=== PATIENT | male | born 1950 | race Caucasian/White ===

== ENCOUNTER 2020-03-26 00:21 | Observation (INO) ==
[2020-03-26] MEDS ORDERED: Naloxone 0.4 MG/ML INJ IVP PRN (03:56)
[2020-03-26] MEDS ORDERED: Acetaminophen 325 MG TABLET PO PRN (03:56)
[2020-03-26] MEDS ORDERED: 0.9 % Sodium Chloride 1,000 ML IVC SCH (04:00)
[2020-03-26 04:55] LABS: Basophils % 0.4 %; Hematocrit 28.5 % (37.5-50.1); Hemoglobin 9.4 g/dL (12.9-16.9); Immature Granulocytes % 0.8 % (0-4); Lymphocytes # 0.5 K/mcL (0.6-4.6); Mean Corpuscular Hemoglobin 29.6 pg (28.0-33.3); Mean Corpuscular Volume 89.6 fL (83.0-100.0); Mean Platelet Volume 9.2 fL (9.4-12.4); Monocytes # 0.4 K/mcL (0.0-1.3); Monocytes % 14.1 %; Neutrophils # 1.7 K/mcL (1.6-8.9); Platelet Count 119 K/mcL (140-400); Red Blood Count 3.18 M/mcL (4.19-5.50); Red Cell Distribution Width 15.9 % (11.5-14.5); Segmented Neutrophils % 66.7 %; White Blood Count 2.6 K/mcL (4.3-11.1)
[2020-03-26 04:56] LABS: Activated Partial Thrombo Time 34.9 Seconds (26.0-36.0)
[2020-03-26 05:10] LABS: Albumin 2.4 g/dL (3.5-5.7); Albumin/Globulin Ratio 0.7 (1.1-2.2); Bilirubin,Total 0.7 mg/dL (0.3-1.0); Calcium 7.6 mg/dL (8.6-10.3); Globulin 3.3 g/dL (2.4-3.5); Potassium 3.5 mEq/L (3.5-5.1); Total Protein 5.7 g/dL (6.4-8.9)
[2020-03-26 05:15] LABS: Troponin I 0.09 ng/mL (< 0.04)
[2020-03-26] MEDS ORDERED: Perflutren Lipid Microsphere 1.3 ML in 0.9 % Sodium Chloride 8.7 ML IVP PRN (05:18)
[2020-03-26] MEDS ORDERED: Aspirin 325 MG TABLET PO ONE (05:18)
[2020-03-26 05:25] LABS: Thyroid Stimulating Hormone 2.323 mcIU/mL (0.340-5.600)
[2020-03-26 06:04] LABS: Phosphorous 3.5 mg/dL (2.7-4.5)
[2020-03-26] MEDS: *HR* Heparin 5,000 UNIT/ML VIAL SQ SCH ×2 (06:55→15:07)
[2020-03-26] MEDS: Sodium Bicarbonate 75 MEQ in 0.45 % Sodium Chloride 1,000 ML IVC SCH (09:57)
[2020-03-26] MEDS: amLODIPine 5 MG TABLET PO SCH (15:07)
[2020-03-26] MEDS ORDERED: Gadolinium Contrast Agent (WT Based) IV PRN (15:15)
[2020-03-26] MEDS ORDERED: SODIUM CHLORIDE/NAHCO3/KCL/PEG 4,000 ML SOLN.RECON PO ONE (15:19)
[2020-03-26 16:21] LABS: Protein/Creatinine Ratio,Urine 1.27 mg/mg (0.00-0.20)
[2020-03-26 17:08] LABS: Bacteria,Urine Few per hpf (None-Few); Bilirubin,Urine Negative (Negative); Blood,Urine Small (Negative); Clarity,Urine Clear (Clear); Color,Urine Light-Yellow (Yellow); Glucose,Urine (UA) 50 mg/dL (Normal); Granular Casts,Urine Few per lpf (None Seen); Hyaline Casts,Urine Few per lpf (None Seen); Ketones,Urine Negative (Negative); Leukocyte Esterase,Urine Negative (Negative); Mucus,Urine Few per lpf (None-Few); Nitrite,Urine Negative (Negative); Protein,Urine 70 mg/dL (Neg-Trace); Specific Gravity,Urine 1.017 (1.010-1.025); Urobilinogen,Urine Normal (Normal); WBC,Urine 0-3 per hpf (0-3)
[2020-03-26 17:52] LABS: Immature Reticulocyte % 11.5 % (11.0-38.0); Retculocyte # 0.08 M/mcL (0.05-0.10); Reticulocyte % 2.2 % (1.6-2.8)
[2020-03-26 18:09] LABS: Calcium 8.1 mg/dL (8.6-10.3); Potassium 3.6 mEq/L (3.5-5.1)
[2020-03-26 18:22] LABS: Prostate Specific Antigen 0.22 ng/mL (Less than 4.00)
[2020-03-26 18:34] LABS: Folate 5.8 ng/mL (3.0-16.0)
[2020-03-27 02:39] LABS: Basophils % 0.4 %; Hematocrit 28.3 % (37.5-50.1); Hemoglobin 9.5 g/dL (12.9-16.9); Immature Granulocytes % 0.7 % (0-4); Lymphocytes # 0.5 K/mcL (0.6-4.6); Lymphocytes % 17.9 %; Mean Corpuscular HGB Conc 33.6 g/dL (31.6-35.5); Mean Corpuscular Hemoglobin 30.7 pg (28.0-33.3); Mean Corpuscular Volume 91.6 fL (83.0-100.0); Mean Platelet Volume 9.2 fL (9.4-12.4); Monocytes # 0.3 K/mcL (0.0-1.3); Monocytes % 11.6 %; Neutrophils # 1.9 K/mcL (1.6-8.9); Platelet Count 122 K/mcL (140-400); Red Blood Count 3.09 M/mcL (4.19-5.50); Red Cell Distribution Width 15.9 % (11.5-14.5); Segmented Neutrophils % 69.4 %; White Blood Count 2.7 K/mcL (4.3-11.1)
[2020-03-27 02:56] LABS: Albumin 2.5 g/dL (3.5-5.7); Albumin/Globulin Ratio 0.8 (1.1-2.2); Bilirubin,Total 0.7 mg/dL (0.3-1.0); Calcium 7.8 mg/dL (8.6-10.3); Chol/HDL Ratio 4.2 (0-4.9); Globulin 3.2 g/dL (2.4-3.5); Magnesium 1.9 mg/dL (1.6-2.6); Phosphorous 3.1 mg/dL (2.7-4.5); Potassium 3.4 mEq/L (3.5-5.1); Total Protein 5.7 g/dL (6.4-8.9)
[2020-03-27 03:22] LABS: Hepatitis B Surface Antigen Nonreactive (Nonreactive)
[2020-03-27 03:50] LABS: Hepatitis B Core IgM Nonreactive (Nonreactive); Hepatitis C Virus Antibody Nonreactive (Nonreactive)
[2020-03-27 03:52] LABS: Hepatitis A Antibody IgM Nonreactive (Nonreactive)
[2020-03-27 08:25] LABS: Estimated Average Glucose 114 mg/dl
[2020-03-27] MEDS: amLODIPine 5 MG TABLET PO SCH (09:37)
[2020-03-27] MEDS: Sodium Bicarbonate 75 MEQ in 0.45 % Sodium Chloride 1,000 ML IVC SCH ×2 (10:38→19:23)
[2020-03-27] MEDS ORDERED: *HR* Propofol 200 MG/20 ML VIAL IVP ONE (12:45)
[2020-03-27] MEDS ORDERED: *HR* FentaNYL (PF) 100 MCG/2 ML VIAL ONE (12:45)
[2020-03-27] MEDS ORDERED: Ondansetron 4 MG/2 ML VIAL ONE (13:01)
[2020-03-27] MEDS ORDERED: Lidocaine -MPF 4% 5 ML AMPUL ONE (13:01)
[2020-03-27] MEDS ORDERED: Dexamethasone 4 MG/ML VIAL ONE (13:01)
[2020-03-28 03:06] LABS: Hematocrit 27.6 % (37.5-50.1); Hemoglobin 9.1 g/dL (12.9-16.9); Mean Corpuscular Hemoglobin 30.4 pg (28.0-33.3); Mean Corpuscular Volume 92.3 fL (83.0-100.0); Mean Platelet Volume 9.2 fL (9.4-12.4); Platelet Count 118 K/mcL (140-400); Red Blood Count 2.99 M/mcL (4.19-5.50); Red Cell Distribution Width 16.2 % (11.5-14.5); White Blood Count 2.3 K/mcL (4.3-11.1)
[2020-03-28 03:26] LABS: Calcium 7.6 mg/dL (8.6-10.3); Potassium 3.6 mEq/L (3.5-5.1)
[2020-03-28 06:59] VITALS: BP 125/66
[2020-03-28] MEDS: amLODIPine 5 MG TABLET PO SCH (09:36)
[2020-03-29 21:40] LABS: Kappa Qnt Free Light Chains 109.67 mg/L (3.30-19.40); Lambda Qnt Free Light Chains 116.49 mg/L (5.71-26.30)
[2020-03-30 10:47] LABS: Kappa Qnt Free Light Chains 117.7 mg/L (3.30-19.40); Lambda Qnt Free Light Chains 120.46 mg/L (5.71-26.30)
[2020-03-31 12:21] LABS: Alpha 2 Globulin (PEP) 0.51 g/dL (0.48-1.05); Beta Globulin (PEP) 0.82 g/dL (0.48-1.10)
[2020-04-01 03:04] LABS: Alpha 2 Globulin (PEP) 0.49 g/dL (0.48-1.05); Beta Globulin (PEP) 0.73 g/dL (0.48-1.10)
[2020-04-01 09:00] LABS: Immunoglobulin A 470 mg/dL (68-408); Immunoglobulin G 1640 mg/dL (768-1632); Immunoglobulin M 179 mg/dL (35-263)
[2020-04-01 09:01] LABS: IFE Reflexed IFE Done
[2020-04-01 10:02] LABS: IFE Reflexed IFE Done; Immunoglobulin G 1580 mg/dL (768-1632); Immunoglobulin M 185 mg/dL (35-263)
[2020-04-01 10:03] LABS: Immunoglobulin A 498 mg/dL (68-408)
== END 2020-03-28 12:22 | disposition home or self-care (01) ==
LOC: 3BNU → SUATTDRO 03:12 → 2ANU 19:01
PROVIDERS: ADMIT Student in an Organized Health Care Education/Training Program; ATTEND Internal Medicine
PROC: ENDOEBX (2020-03-27 13:40)

== ENCOUNTER 2020-05-31 01:32 | Observation (INO) ==
[2020-05-31] MEDS ORDERED: *HR* Promethazine 25 MG/ML VIAL IVP PRN (06:32)
[2020-05-31] MEDS ORDERED: Naloxone 0.4 MG/ML INJ IVP PRN ×2 (06:32→07:26)
[2020-05-31 06:54] LABS: Hematocrit 31.1 % (37.5-50.1)
[2020-05-31 06:55] LABS: Eosinophils % 0.4 %; Immature Granulocytes % 0.8 % (0-4); Immature Platelets 1.7 % (1.1-6.1); Lymphocytes # 0.5 K/mcL (0.6-4.6); Lymphocytes % 20.2 %; Mean Corpuscular HGB Conc 32.2 g/dL (31.6-35.5); Mean Corpuscular Volume 96.3 fL (83.0-100.0); Monocytes # 0.3 K/mcL (0.0-1.3); Monocytes % 11.3 %; Neutrophils # 1.7 K/mcL (1.6-8.9); Platelet Count 102 K/mcL (140-400); Red Blood Count 3.23 M/mcL (4.19-5.50); Red Cell Distribution Width 17.3 % (11.5-14.5); Segmented Neutrophils % 67.3 %; White Blood Count 2.5 K/mcL (4.3-11.1)
[2020-05-31 06:55] LABS: VBG Ionized Calcium 1.83 mmol/L (1.15-1.35)
[2020-05-31 07:01] LABS: Prothrombin Time 11.5 Seconds (9.4-12.1)
[2020-05-31] MEDS ORDERED: Acetaminophen 325 MG TABLET PO PRN (07:26)
[2020-05-31 07:34] LABS: Albumin 2.7 g/dL (3.5-5.7); Albumin/Globulin Ratio 0.7 (1.1-2.2); Bilirubin,Total 0.9 mg/dL (0.3-1.0); Calcium 12.3 mg/dL (8.6-10.3); Chol/HDL Ratio 3.3 (0-4.9); Globulin 3.7 g/dL (2.4-3.5); Magnesium 2.2 mg/dL (1.6-2.6); Phosphorous 6.1 mg/dL (2.7-4.5); Potassium 4.5 mEq/L (3.5-5.1); Total Protein 6.4 g/dL (6.4-8.9)
[2020-05-31 07:45] LABS: Thyroid Stimulating Hormone 2.524 mcIU/mL (0.340-5.600)
[2020-05-31 09:18] LABS: Calcium 12.3 mg/dL (8.6-10.3); Potassium 4.3 mEq/L (3.5-5.1)
[2020-05-31 11:22] LABS: Prostate Specific Antigen 0.11 ng/mL (Less than 4.00)
[2020-05-31] MEDS ORDERED: Calcitonin-Salmon, Synthetic 400 UNIT/2 ML VIAL SQ ONE (12:00)
[2020-05-31] MEDS: 0.9 % Sodium Chloride 1,000 ML IVC SCH ×2 (12:02→13:06)
[2020-05-31 12:31] LABS: Hepatitis B Surface Antigen Nonreactive (Nonreactive)
[2020-05-31 13:00] LABS: Hepatitis C Virus Antibody Nonreactive (Nonreactive)
[2020-05-31 13:00] LABS: Bilirubin,Urine Negative (Negative); Blood,Urine Trace (Negative); Calcium Oxalate Crystals,Urine Present; Clarity,Urine Clear (Clear); Color,Urine Light-Yellow (Yellow); Glucose,Urine (UA) Normal (Normal); Ketones,Urine Negative (Negative); Leukocyte Esterase,Urine Negative (Negative); Mucus,Urine Few per lpf (None-Few); Nitrite,Urine Negative (Negative); Protein,Urine 50 mg/dL (Neg-Trace); RBC,Urine 0-3 per hpf (0-3); Specific Gravity,Urine 1.014 (1.010-1.025); Urobilinogen,Urine Normal (Normal); WBC,Urine 0-3 per hpf (0-3)
[2020-05-31 13:01] LABS: Hepatitis A Antibody IgM Nonreactive (Nonreactive)
[2020-05-31] MEDS: Sodium Bicarbonate 150 MEQ in D5% in Water 1,000 ML IVC SCH (17:39)
[2020-06-01 00:28] LABS: ABG Base Excess -7 mEq/L (-2 to 3); ABG HCO3 17 mEq/L (21-27); ABG Oxygen Saturation 94 % (95-98); ABG PCO2 24 mmHg (35-45); ABG PH 7.44 pH Units (7.32-7.45); ABG PO2 68 mmHg (85-104); ABG TCO2 17 mEq/L (20-26)
[2020-06-01 02:21] LABS: Hemoglobin 9.6 g/dL (12.9-16.9); Immature Granulocytes % 0.6 % (0-4); Lymphocytes # 0.6 K/mcL (0.6-4.6); Lymphocytes % 18.4 %; Mean Corpuscular Hemoglobin 30.8 pg (28.0-33.3); Mean Corpuscular Volume 96.2 fL (83.0-100.0); Mean Platelet Volume 9.7 fL (9.4-12.4); Monocytes # 0.3 K/mcL (0.0-1.3); Neutrophils # 2.2 K/mcL (1.6-8.9); Platelet Count 103 K/mcL (140-400); Red Blood Count 3.12 M/mcL (4.19-5.50); Red Cell Distribution Width 17.5 % (11.5-14.5); White Blood Count 3.1 K/mcL (4.3-11.1)
[2020-06-01 02:43] LABS: Calcium 10.9 mg/dL (8.6-10.3); Magnesium 1.9 mg/dL (1.6-2.6); Potassium 3.9 mEq/L (3.5-5.1)
[2020-06-01] MEDS ORDERED: Furosemide 40 MG/4 ML VIAL IVP ONE (07:29)
[2020-06-01] MEDS ORDERED: methylPREDNISolone 125 MG/2 ML VIAL IVP ONE (07:30)
[2020-06-01] MEDS ORDERED: Ipratropium/Albuterol Neb 3 ML ONE (07:31)
[2020-06-01] MEDS: Ipratropium/Albuterol Neb 3 ML IH SCH ×3 (07:33→16:16)
[2020-06-01] MEDS: Sodium Bicarbonate 150 MEQ in D5% in Water 1,000 ML IVC SCH (08:10)
[2020-06-01] MEDS ORDERED: Lactulose 200 GM, Sodium Chloride IRRigation 700 ML RC SCH (09:00)
[2020-06-01 10:11] LABS: Adenovirus Not Detected (Not Detect); Bordetella Pertussis Not Detected (Not Detect); Chlamydophila pneumoniae Not Detected (Not Detect); Coronavirus 229E Not Detected (Not Detect); Coronavirus HKU1 Not Detected (Not Detect); Coronavirus NL63 Not Detected (Not Detect); Coronavirus OC43 Not Detected (Not Detect); Human Metapneumovirus Not Detected (Not Detect); Human Rhinovirus/Enterovirus Not Detected (Not Detect); Influenza A Subtype 2009 H1 Not Detected (Not Detect); Influenza B Not Detected (Not Detect); Mycoplasma pneumoniae Not Detected (Not Detect); Parainfluenza Virus 1 Not Detected (Not Detect); Parainfluenza Virus 2 Not Detected (Not Detect); Parainfluenza Virus 3 Not Detected (Not Detect); Parainfluenza Virus 4 Not Detected (Not Detect); Respiratory Syncytial Virus Not Detected (Not Detect); SARS-CoV-2 Not Detected (Not Detect)
[2020-06-01] MEDS: Albumin 25% 25gram/100mL 25 GM/100 ML IV.SOLN IVPB SCH ×2 (10:49→16:34)
[2020-06-01] MEDS ORDERED: Calcitonin-Salmon, Synthetic 400 UNIT/2 ML VIAL SQ ONE (14:04)
[2020-06-01] MEDS ORDERED: Acetaminophen IV 1,000 MG/100 ML INFUS..BTL IVPB ONE (16:00)
[2020-06-01] MEDS ORDERED: Ipratropium/Albuterol Neb 3 ML IH PRN (16:53)
[2020-06-01] MEDS ORDERED: *HR* LORazepam 2 MG/ML VIAL IVP PRN (20:36)
[2020-06-01] MEDS: Lactulose Oral Soln 20 GM/30 ML UDC PO SCH (20:55)
[2020-06-01] MEDS ORDERED: *HR* Heparin 5,000 UNIT/ML VIAL SQ SCH (22:00)
[2020-06-02] MEDS ORDERED: predniSONE 20 MG TABLET PO SCH (09:00)
[2020-06-02] MEDS: Lactulose Oral Soln 20 GM/30 ML UDC PO SCH (09:43)
[2020-06-02 11:57] VITALS: BP 115/69
[2020-06-02 14:40] LABS: AFP Tumor Marker Non-Pregnant 2 ng/mL (0-9); Cancer Antigen-GI (CA 19-9) 194 U/mL (0-37)
[2020-06-02 19:10] LABS: Lambda Qnt Free Light Chains 186.86 mg/L (5.71-26.30)
[2020-06-03 08:04] LABS: Kappa Qnt Free Light Chains 231.86 mg/L (3.30-19.40)
[2020-06-04 22:48] LABS: Alpha 2 Globulin (PEP) 0.48 g/dL (0.48-1.05); Beta Globulin (PEP) 0.82 g/dL (0.48-1.10)
[2020-06-05 12:28] LABS: IFE Reflexed IFE Done; Immunoglobulin A 689 mg/dL (68-408); Immunoglobulin G 1860 mg/dL (768-1632); Immunoglobulin M 260 mg/dL (35-263)
== END 2020-06-02 14:07 | disposition hospice, home (50) ==
LOC: 3ANU → SUATTDRO 06:07 → 2ANU 06-02 00:27
PROVIDERS: ADMIT Pharmacist; ATTEND Internal Medicine